=== PATIENT | female | born 1955 | race Caucasian/White ===

== ENCOUNTER 2018-12-12 17:43 | Inpatient (IN) | payer MEDICARE, BC | END 2018-12-17 14:33 | disposition home or self-care (01) | LOC: ER 17:43 → PCU 3S 12-13 07:33 → ED HOLD 21:38 | DX: E11.22 Type 2 diabetes mellitus with diabetic chronic kidney disease (principal); I20.0 Unstable angina; I12.9 Hypertensive chronic kidney disease with stage 1 through stage 4 chronic kidney disease, or unspecified chronic kidney disease; N18.9 Chronic kidney disease, unspecified; N17.9 Acute kidney failure, unspecified; I10 Essential (primary) hypertension ==

== ENCOUNTER 2019-10-30 09:05 | Observation (INO) | payer MEDICARE ==
[2019-10-29 15:56] LABS: BASOPHILS # (AUTO) 0.1 X10'3 (0-0.2); BASOPHILS % (AUTO) 0.9 % (0-1); EOSINOPHILS # (AUTO) 0.1 X10'3 (0-0.9); EOSINOPHILS % (AUTO) 2.1 % (0-6); HEMATOCRIT 33.9 % (35.0-45.0); HEMOGLOBIN 11.5 g/dl (12.0-16.0); LYMPHOCYTES # (AUTO) 1.3 X10'3 (1.1-4.8); LYMPHOCYTES % (AUTO) 20.4 % (21-51); MEAN CORPUSCULAR HEMOGLOBIN 28.5 PG (27.0-31.0); MEAN CORPUSCULAR HGB CONC 34.1 g/dL (33.0-36.5); MEAN CORPUSCULAR VOLUME 83.6 FL (78-98); MEAN PLATELET VOLUME 6.8 FL (7.4-10.4); MONOCYTES # (AUTO) 0.5 X10'3 (0-0.9); MONOCYTES % (AUTO) 7.3 % (2-12); NEUTROPHILS # (AUTO) 4.5 X10'3 (1.8-7.7); NEUTROPHILS % (AUTO) 69.3 % (42-75); PLATELET COUNT 339 X10'3 (140-440); RED BLOOD COUNT 4.05 X10'6 (4.20-5.60); RED CELL DISTRIBUTION WIDTH 13.7 % (11.5-14.5); WHITE BLOOD COUNT 6.5 X10'3 (4.5-11.0)
[2019-10-29 16:05] LABS: ALBUMIN 3.8 G/DL (3.4-5.0); ANION GAP 7 (8-16); BLOOD UREA NITROGEN 16 MG/DL (7-18); BUN/CREATININE RATIO 16.7 (6.6-38.0); CALCIUM 9.3 MG/DL (8.5-10.1); CHLORIDE 102 MMOL/L (99-107); CREATININE 0.96 MG/DL (0.40-0.90); GLUCOSE 128 MG/DL (70-104); POTASSIUM 3.2 MMOL/L (3.5-5.1); SODIUM 141 MMOL/L (135-145); TOTAL CARBON DIOXIDE 32.4 MMOL/L (24-32); eGFR 58 ML/MIN
[2019-10-29 16:08] LABS: PARTIAL THROMBOPLASTIN TIME 24 SECONDS (22-32)
[~2019-10-30] VITALS: Ht 165.1 cm; Wt 64.8 kg
[2019-10-30] VITALS (11 sets, daily range): BP systolic 132–151; BP diastolic 71–89
[~2019-10-30 09:05] MED LIST: AMLO2.5T2 PO; ASPI-1 PO; CLON-528 PO; CLOP75TA35 PO; FAMO20TA8 PO; FLUT16SP2 BOTHNARES; GEMF600T89 PO; HYDR25TA4 PO; LOSA50TA3 PO; METF500T20 PO; METO100T7 PO; NITR0.4T51 SL; PRAV80TA3 PO; SERT50TA PO; SPIR25TA PO; hyDRALAzine tablet PO
[2019-10-30] MEDS ORDERED: LORazepam 0.5 MG tablet PO PRN (09:20)
[2019-10-30] MEDS ORDERED: diphenhydrAMINE 25mg capsule PO PRN (09:20)
[2019-10-30] MEDS: normal saline 1,000 ML IV SCH ×2 (09:20→17:39)
[2019-10-30] MEDS ORDERED: ATOR-2 PO (10:42)
[2019-10-30] MEDS ORDERED: ASPI-1265 PO (10:42)
[2019-10-30] MEDS ORDERED: HYDR-4069 PO ×2 (10:42→10:50)
[2019-10-30] MEDS ORDERED: fentaNYL/PF 50MCG/1 ML 2ML syringe ONE (10:45)
[2019-10-30] MEDS ORDERED: nitroGLYCERIN-Tridil 50MG/D5W 250 ML IV ONE (10:45)
[2019-10-30] MEDS ORDERED: iohexol 350MG/ML 100ml bottle IV ONE ×3 (10:46→12:26)
[2019-10-30] MEDS ORDERED: heparin 1,000unit/ml 10ml vial 10 ML ONE (10:46)
[2019-10-30] MEDS ORDERED: iohexol 350 MG/ML 50ML vial IV ONE (10:46)
[2019-10-30] MEDS ORDERED: midazolam 2 mg/2 ml injection ONE (10:46)
[2019-10-30] MEDS ORDERED: LIDOcaine 1% (10mg/ml)w/preservative injection 20ml MDV ONE (10:46)
[2019-10-30] MEDS ORDERED: NITR0.4T51 SL (10:50)
[2019-10-30] MEDS ORDERED: CLOP75TA15 PO (10:50)
[2019-10-30] MEDS ORDERED: verapamil 2.5 mg/ml inj IV ONE (11:03)
[2019-10-30] MEDS ORDERED: heparin 25,000 UNIT/250ml bag 250 ML IV ONE (12:09)
[2019-10-30] MEDS ORDERED: heparin 1,000 UNITS/NS 500ml 500 ML ONE (12:42)
[2019-10-30] MEDS ORDERED: tirofiban 5mg in NS 100mL 100 ML IV ONE (13:09)
[2019-10-30] MEDS ORDERED: clopidogrel 300mg tablet ONE (13:24)
--- NOTE | 2019-10-30 14:16 | NUR ---
Patient returned from OR via gurney awake and alert. States she is sleepy, oriented x4. vss. Denies cp or sob. Vascband on right wrist without bleeding or hematoma; s/p left and right heart cath with balloon of prior stent. Heparin gtt running at 15.5 units/hr. Agrastat at 0.15mcg/kg/min. Awaiting admission to PCU bed. at bedside. Given water, ice chips and sandwich.
[2019-10-30] MEDS ORDERED: potassium Cl 20 mEq SR tablet PO ONE (14:20)
[2019-10-30] MEDS ORDERED: aspirin 81mg tab.chew PO ONE (14:20)
[2019-10-30] MEDS ORDERED: nitroGLYCERIN 0.4mg SUBLingual tab SL PRN (14:30)
[2019-10-30] MEDS: hydrALAZINE 25 MG tablet PO SCH (16:00)
--- NOTE | 2019-10-30 17:10 | NUR ---
Patient to go to [facility]. I have received report from FAISAL Reed and had the opportunity to ask questions.
--- NOTE | 2019-10-30 17:49 | NUR ---
Patient arrived on unit. A&Ox4, no s/sx of distress. Resting comfortably in bed. Vital signs stable.
--- NOTE | 2019-10-30 18:07 | NUR ---
Problems reprioritized. Patient report given, questions answered & plan of care reviewed with FAISAL Jones.
[2019-10-30] MEDS: tirofiban 5mg in NS 100mL 100 ML IV SCH ×2 (19:17→23:35)
[2019-10-30] MEDS: sertraline 50mg tablet PO SCH (20:40)
[2019-10-30] MEDS ORDERED: metoprolol succinate 25mg (24-HOUR) SR. Tablet PO SCH (21:00)
[2019-10-30] MEDS ORDERED: clonazePAM 0.5mg tablet PO SCH (21:00)
[2019-10-30] MEDS ORDERED: HYDROchlorothiazide 25mg tablet PO SCH (21:00)
[2019-10-30] MEDS ORDERED: amLODIPine 5mg tablet PO SCH (21:00)
[2019-10-30] MEDS: gemfibrozil 600mg tablet PO SCH (22:52)
[2019-10-31] MEDS: normal saline 1,000 ML IV SCH (00:19)
[2019-10-31] MEDS: hydrALAZINE 25 MG tablet PO SCH ×2 (01:14→07:47)
[2019-10-31 02:00] VITALS: BP 142/69
[2019-10-31 03:55] LABS: BASOPHILS % (AUTO) 0.4 % (0-1); EOSINOPHILS # (AUTO) 0.1 X10'3 (0-0.9); EOSINOPHILS % (AUTO) 1.5 % (0-6); HEMOGLOBIN 10.6 g/dl (12.0-16.0); LYMPHOCYTES # (AUTO) 1.3 X10'3 (1.1-4.8); LYMPHOCYTES % (AUTO) 13.4 % (21-51); MEAN CORPUSCULAR HEMOGLOBIN 28.3 PG (27.0-31.0); MEAN CORPUSCULAR HGB CONC 34.2 g/dL (33.0-36.5); MEAN CORPUSCULAR VOLUME 82.9 FL (78-98); MEAN PLATELET VOLUME 6.5 FL (7.4-10.4); MONOCYTES # (AUTO) 0.6 X10'3 (0-0.9); MONOCYTES % (AUTO) 6.9 % (2-12); NEUTROPHILS # (AUTO) 7.3 X10'3 (1.8-7.7); NEUTROPHILS % (AUTO) 77.8 % (42-75); PLATELET COUNT 317 X10'3 (140-440); RED BLOOD COUNT 3.73 X10'6 (4.20-5.60); RED CELL DISTRIBUTION WIDTH 13.8 % (11.5-14.5); WHITE BLOOD COUNT 9.4 X10'3 (4.5-11.0)
[2019-10-31 04:15] LABS: ALBUMIN 3.2 G/DL (3.4-5.0); ANION GAP 8 (8-16); BLOOD UREA NITROGEN 21 MG/DL (7-18); CALCIUM 8.7 MG/DL (8.5-10.1); CHLORIDE 104 MMOL/L (99-107); CREATININE 1.05 MG/DL (0.40-0.90); GLUCOSE 128 MG/DL (70-104); POTASSIUM 3.4 MMOL/L (3.5-5.1); SODIUM 140 MMOL/L (135-145); TOTAL CARBON DIOXIDE 28.2 MMOL/L (24-32); eGFR 52 ML/MIN
[2019-10-31 06:00] VITALS: BP 147/77
--- NOTE | 2019-10-31 06:10 | NUR ---
Patient in room [facility]. I have received report from FAISAL Jones and had the opportunity to ask questions and assume patient care.
--- NOTE | 2019-10-31 06:15 | NUR ---
Problems reprioritized. Patient report given to Li, questions answered & plan of care reviewed with .
[2019-10-31] MEDS: gemfibrozil 600mg tablet PO SCH (07:47)
[2019-10-31] MEDS: sertraline 50mg tablet PO SCH (07:48)
[2019-10-31] MEDS ORDERED: clopidogrel 75mg tablet PO SCH ×2 (08:00)
[2019-10-31] MEDS ORDERED: atorvastatin 20mg tablet PO SCH (08:00)
[2019-10-31] MEDS ORDERED: losartan 50mg tablet PO SCH (08:00)
[2019-10-31] MEDS ORDERED: aspirin 81mg tab.chew PO SCH (08:00)
[2019-10-31] MEDS ORDERED: aspirin 325mg tablet PO SCH (08:30)
[2019-10-31] MEDS ORDERED: potassium Cl 20 mEq SR tablet PO STA (09:00)
[2019-10-31] MEDS ORDERED: ASPI-1 PO (09:34)
[2019-10-31] MEDS ORDERED: FENO145T38 PO (09:34)
[2019-10-31] MEDS ORDERED: PANT40TA4 PO (10:02)
[2019-10-31] MEDS ORDERED: mag hydrox/Alum hydrox/simeth 30ml oral suspension PO ONE (10:05)
[2019-10-31] MEDS ORDERED: pantoprazole 40 MG vial IV ONE (10:05)
[2019-10-31 10:11] LABS: ISTAT HGB ART 10.9 g/dl (12.0-16.0); ISTAT Hct ART 32 %PCV (35-48); ISTAT O2 SATURATION ARTERIAL 94 % (95-98); ISTAT SOURCE ART
[2019-10-31 10:11] LABS: ISTAT Hct MIX 31 %PCV (35-48); ISTAT O2 SATURATION MIX VENOUS 75 % (60-80); ISTAT SOURCE MIX
--- NOTE | 2019-10-31 13:25 | NUR ---
Patient stable for discharge per MD orders. Prescriptions called in to [facility]. All discharge instructions reviewed with patient and all questions answered. panel monitor removed. PIV discontinued, cannula intact. Clean, dry, dressing intact. All personal belongings collected and sent with patient. patient wheeled to private vehicle by hospital personnel at 1325.
--- NOTE | 2019-11-01 10:45 | NUR ---
Case Management DC follow up: spoke to pt & spouse via telephone: pt states she is feeling good, resting. Denies cp, emergent pain, SOB, resp distress, NV, dizziness at this time. verbalizes understanding of medications and why prescribed. All needs met, questions answered at DC. No ase noted at this time. Denies redness, elevated warmth, abnormal swelling/pain, oozing, odor at wrist cath insertion site. Pt verbalized understanding of s/s infection. pt did develop a significant skin rash from hip, breast, back. Called Dr Staples & it was noted that possible dye reaction and he prescribed benedryl which pt states is effective. Pt verbalized understanding of s/s of possible complications and to call emergency serves if warranted. No further questions at this time. Addendum: 11/01/19 at 1054 by Karla Bray RN Pt acknowledges follow up appts necessary w/Dr Staples & PCP [facility], Naty Jones
[2019-11-01] MEDS ORDERED: metFORMIN 500mg tablet PO SCH (20:00)
== END 2019-10-31 13:30 | disposition home or self-care (01) ==
LOC: SSTAY O 09:05 → MED 3N 18:02
PROVIDERS: ADMIT Internal Medicine Cardiovascular Disease; ATTEND Internal Medicine Cardiovascular Disease
DX: I25.10 Atherosclerotic heart disease of native coronary artery without angina pectoris (principal); R94.30 Abnormal result of cardiovascular function study, unspecified; Z95.5 Presence of coronary angioplasty implant and graft; E11.9 Type 2 diabetes mellitus without complications; I10 Essential (primary) hypertension; E78.5 Hyperlipidemia, unspecified; Z79.02 Long term (current) use of antithrombotics/antiplatelets; Z79.82 Long term (current) use of aspirin; Z79.899 Other long term (current) drug therapy
CPT/HCPCS: 36415; 80048; 82803; 82948; 85014; 85025; 85347; 85610; 85730; 92920; 92921; 92978; 93005; 93460; 96365; 96366; 96375; C1725; C1753; C1769; C1894; C9113; G0378; J1644; J2001; J2250; J3010; J3246; J7030; Q0163; Q9967; 99152; 99153; A4620; A5120; A6258; J3490

== ENCOUNTER 2019-11-03 21:40 | Emergency (ER) | payer MEDICARE ==
[~2019-11-03] VITALS: Ht 165.1 cm; Wt 63.0 kg
[~2019-11-03 21:40] MED LIST changes: +ATOR-2 PO; +CLOP75TA15 PO; -CLOP75TA35 PO; -FAMO20TA8 PO; +FENO145T38 PO; -FLUT16SP2 BOTHNARES; -GEMF600T89 PO; +HYDR-4069 PO; +PANT40TA4 PO; -PRAV80TA3 PO; -SPIR25TA PO; -hyDRALAzine tablet PO
[2019-11-03 22:25] LABS: BASOPHILS # (AUTO) 0.1 X10'3 (0-0.2); BASOPHILS % (AUTO) 0.9 % (0-1); EOSINOPHILS # (AUTO) 0.2 X10'3 (0-0.9); EOSINOPHILS % (AUTO) 2.6 % (0-6); HEMATOCRIT 36.1 % (35.0-45.0); HEMOGLOBIN 12.1 g/dl (12.0-16.0); LYMPHOCYTES # (AUTO) 1.5 X10'3 (1.1-4.8); LYMPHOCYTES % (AUTO) 21.5 % (21-51); MEAN CORPUSCULAR HEMOGLOBIN 28.1 PG (27.0-31.0); MEAN CORPUSCULAR HGB CONC 33.5 g/dL (33.0-36.5); MEAN PLATELET VOLUME 6.6 FL (7.4-10.4); MONOCYTES # (AUTO) 0.6 X10'3 (0-0.9); MONOCYTES % (AUTO) 8.5 % (2-12); NEUTROPHILS # (AUTO) 4.8 X10'3 (1.8-7.7); NEUTROPHILS % (AUTO) 66.5 % (42-75); PLATELET COUNT 376 X10'3 (140-440); RED CELL DISTRIBUTION WIDTH 14.2 % (11.5-14.5); WHITE BLOOD COUNT 7.2 X10'3 (4.5-11.0)
[2019-11-03 22:43] LABS: ALANINE AMINOTRANSFERASE 34 U/L (12-78); ALBUMIN 3.7 G/DL (3.4-5.0); ALKALINE PHOSPHATASE 89 IU/L (46-116); ANION GAP 5 (8-16); ASPARTATE AMINO TRANSFERASE 26 U/L (10-37); BILIRUBIN,TOTAL 0.3 MG/DL (0.1-1.0); BLOOD UREA NITROGEN 20 MG/DL (7-18); BUN/CREATININE RATIO 15.6 (6.6-38.0); CALCIUM 9.1 MG/DL (8.5-10.1); CHLORIDE 102 MMOL/L (99-107); CREATININE 1.28 MG/DL (0.40-0.90); GLUCOSE 145 MG/DL (70-104); POTASSIUM 3.1 MMOL/L (3.5-5.1); SODIUM 140 MMOL/L (135-145); TOTAL CARBON DIOXIDE 33.1 MMOL/L (24-32); TOTAL PROTEIN 7.5 G/DL (6.4-8.2); eGFR 42 ML/MIN
[2019-11-03] MEDS ORDERED: diphenhydrAMINE 25mg capsule PO ONE (22:45)
[2019-11-04] MEDS ORDERED: potassium Cl 20 mEq SR tablet PO ONE (01:40)
[2019-11-04] MEDS ORDERED: sertraline 50mg tablet PO ONE (02:35)
[2019-11-04] MEDS ORDERED: hyDRALAzine 10mg tablet PO ONE (02:35)
[2019-11-04] MEDS ORDERED: chlorthalidone 25mg tablet PO ONE (02:35)
[2019-11-04] MEDS ORDERED: amLODIPine 5mg tablet PO ONE (02:35)
[2019-11-04] MEDS ORDERED: clonazePAM 0.5mg tablet PO ONE (02:35)
--- NOTE | 2019-11-04 02:39 | NUR ---
PT REQUESTS TO TAKE HER EVENING MEDS THAT WERE MISSED D/T HER BEING HERE. DR. GAINES UPDATED AND VERBAL RECEIVED FOR ALL OF HER DAMARIS MEDS (AMLODIPINE, CLONAZAPAM, HYDRALAZINE, CHLORTHALIDONE, METFORMIN, SERTRALINIE). PTS REMAINS AT BEDSIDE. PT WITH HEADACHE. DENIES ANY CP. STATES DR. CAMPOS DID THE CATH [address] GAINES HAS PAGE OUT OT CAARDILSUEGY, DR. CHANDLER, FOR CONSULT. 3 HR TROP REMAINS ELEVATED AT 0.18 (0 HR 0.17)
[2019-11-04] MEDS ORDERED: metFORMIN 500mg tablet PO ONE (02:40)
--- NOTE | 2019-11-04 03:07 | NUR ---
PT TO BE DISCHARGED PER DR. GAINES, HE WILL TALK WITH THEM SHORTLY
[2019-11-04 03:21] VITALS: BP 142/76
== END 2019-11-04 03:50 | disposition home or self-care (01) ==
LOC: ER 21:41
DX: R07.89 Other chest pain (principal); R05 Cough; I10 Essential (primary) hypertension; Z98.61 Coronary angioplasty status; Z88.0 Allergy status to penicillin; Z79.82 Long term (current) use of aspirin; Z79.84 Long term (current) use of oral hypoglycemic drugs; Z79.899 Other long term (current) drug therapy
CPT/HCPCS: 36415; 71045; 80053; 84484; 85025; 93005; 99284; Q0163

== ENCOUNTER 2019-11-17 22:10 | Emergency (ER) | payer MEDICARE ==
[~2019-11-17] VITALS: Ht 165.1 cm; Wt 63.6 kg
[2019-11-17] MEDS ORDERED: hydrALAZINE 20mg/ml inj. IV ONE (22:25)
--- NOTE | 2019-11-17 22:42 | NUR ---
pt is 64 yo female c/o headache and "high blood pressure" today, at home BP was 160s to 170s/90s, chest "pressure" off and on, midsternal, nonradiating, no SOB, no n/v, "I just don't feel well...feel tired", pt had stent 10 months ago and angioplasty 2 weeks ago, family at bedside
[2019-11-17 22:47] LABS: BASOPHILS # (AUTO) 0.1 X10'3 (0-0.2); EOSINOPHILS # (AUTO) 0.1 X10'3 (0-0.9); EOSINOPHILS % (AUTO) 2.2 % (0-6); HEMOGLOBIN 11.3 g/dl (12.0-16.0); LYMPHOCYTES # (AUTO) 1.7 X10'3 (1.1-4.8); MEAN CORPUSCULAR HEMOGLOBIN 29.1 PG (27.0-31.0); MEAN CORPUSCULAR HGB CONC 35.4 g/dL (33.0-36.5); MEAN CORPUSCULAR VOLUME 82.3 FL (78-98); MEAN PLATELET VOLUME 6.5 FL (7.4-10.4); MONOCYTES # (AUTO) 0.6 X10'3 (0-0.9); MONOCYTES % (AUTO) 9.9 % (2-12); NEUTROPHILS # (AUTO) 3.8 X10'3 (1.8-7.7); NEUTROPHILS % (AUTO) 59.9 % (42-75); PLATELET COUNT 383 X10'3 (140-440); RED BLOOD COUNT 3.89 X10'6 (4.20-5.60); RED CELL DISTRIBUTION WIDTH 13.9 % (11.5-14.5); WHITE BLOOD COUNT 6.3 X10'3 (4.5-11.0)
[2019-11-17 23:02] LABS: ALANINE AMINOTRANSFERASE 25 U/L (12-78); ALBUMIN 3.9 G/DL (3.4-5.0); ALBUMIN/GLOBULIN RATIO 1.1 (1.1-1.5); ALKALINE PHOSPHATASE 61 IU/L (46-116); ANION GAP 7 (8-16); ASPARTATE AMINO TRANSFERASE 27 U/L (10-37); BILIRUBIN,TOTAL 0.2 MG/DL (0.1-1.0); BLOOD UREA NITROGEN 17 MG/DL (7-18); CALCIUM 9.6 MG/DL (8.5-10.1); CHLORIDE 100 MMOL/L (99-107); CREATININE 1.13 MG/DL (0.40-0.90); GLUCOSE 108 MG/DL (70-104); POTASSIUM 3.3 MMOL/L (3.5-5.1); SODIUM 137 MMOL/L (135-145); TOTAL CARBON DIOXIDE 30.3 MMOL/L (24-32); TOTAL PROTEIN 7.3 G/DL (6.4-8.2); eGFR 48 ML/MIN
[2019-11-17 23:10] LABS: MAGNESIUM 1.9 MG/DL (1.5-2.4)
[2019-11-17] MEDS ORDERED: potassium Cl 20 mEq SR tablet PO STA (23:12)
[2019-11-17] MEDS ORDERED: acetaminophen 325mg tablet PO ONE (23:15)
[2019-11-17 23:36] VITALS: BP 157/83
== END 2019-11-17 23:38 | disposition home or self-care (01) ==
LOC: ER 22:11
DX: I10 Essential (primary) hypertension (principal); E87.6 Hypokalemia; Z98.61 Coronary angioplasty status; Z88.0 Allergy status to penicillin; Z79.82 Long term (current) use of aspirin; Z79.84 Long term (current) use of oral hypoglycemic drugs; Z79.899 Other long term (current) drug therapy
CPT/HCPCS: 36415; 71045; 80053; 83735; 83880; 84484; 85025; 93005; 96374; 99284; J0360

== ENCOUNTER 2020-03-12 17:35 | Emergency (ER) | payer MEDICARE ==
[~2020-03-12] VITALS: Ht 165.1 cm; Wt 63.6 kg
[~2020-03-12 17:35] MED LIST changes: -FENO145T38 PO; +METF-900 PO; -METF500T20 PO
[2020-03-12 18:17] LABS: D-DIMER 0.26 MG/L FEU (0-0.50)
[2020-03-12 18:48] VITALS: BP 130/74
== END 2020-03-12 18:53 | disposition home or self-care (01) ==
LOC: ER 17:37
DX: S80.12XA Contusion of left lower leg, initial encounter (principal); M79.605 Pain in left leg; I25.10 Atherosclerotic heart disease of native coronary artery without angina pectoris; I10 Essential (primary) hypertension; Z98.61 Coronary angioplasty status; Z98.890 Other specified postprocedural states; Z88.0 Allergy status to penicillin; Z79.82 Long term (current) use of aspirin; Z79.899 Other long term (current) drug therapy; X58.XXXA Exposure to other specified factors, initial encounter; Y93.89 Activity, other specified; Y92.89 Other specified places as the place of occurrence of the external cause; Y99.8 Other external cause status
CPT/HCPCS: 36415; 85379; 93971; 99284

== ENCOUNTER 2020-08-13 13:22 | Emergency (ER) | payer MEDICARE ==
[~2020-08-13] VITALS: Ht 165.1 cm; Wt 59.1 kg
[~2020-08-13 13:22] MED LIST changes: +AMIO200T61 PO; -ASPI-1 PO; +ASPI-1265 PO; -ATOR-2 PO; +ATOR80TA PO; +CALC600T15; +CLE2VCR VG; +CLON-527 PO; -CLON-528 PO; -CLOP75TA15 PO; +ERGO400C PO; +EZET10TA6 PO; +FLAX10007 PO; +FLUC150T66 PO; -HYDR25TA4 PO; +MAGN250T11 PO; +MECO10005; -METF-900 PO; +METF500T PO; -METO100T7 PO; +METO50TA7 PO; -NITR0.4T51 SL; -PANT40TA4 PO; +POTA10CA44 PO; +PRAS10TA6 PO; +ZINC10LO5
[2020-08-13 13:58] LABS: BASOPHILS # (AUTO) 0.1 X10'3 (0-0.2); BASOPHILS % (AUTO) 1.1 % (0-1); EOSINOPHILS # (AUTO) 0.1 X10'3 (0-0.9); EOSINOPHILS % (AUTO) 1.5 % (0-6); HEMATOCRIT 29.8 % (35.0-45.0); HEMOGLOBIN 9.6 g/dl (12.0-16.0); LYMPHOCYTES % (AUTO) 13.2 % (21-51); MEAN CORPUSCULAR HEMOGLOBIN 25.2 PG (27.0-31.0); MEAN CORPUSCULAR HGB CONC 32.2 g/dL (33.0-36.5); MEAN CORPUSCULAR VOLUME 78.5 FL (78-98); MEAN PLATELET VOLUME 6.4 FL (7.4-10.4); MONOCYTES # (AUTO) 0.7 X10'3 (0-0.9); MONOCYTES % (AUTO) 9.9 % (2-12); NEUTROPHILS # (AUTO) 5.5 X10'3 (1.8-7.7); NEUTROPHILS % (AUTO) 74.3 % (42-75); PLATELET COUNT 408 X10'3 (140-440); RED CELL DISTRIBUTION WIDTH 15.7 % (11.5-14.5); WHITE BLOOD COUNT 7.4 X10'3 (4.5-11.0)
[2020-08-13 14:09] LABS: GLUCOSE 91 MG/DL (70-104); SODIUM 139 MMOL/L (135-145)
[2020-08-13 14:10] LABS: ALANINE AMINOTRANSFERASE 32 U/L (12-78); ALBUMIN 3.2 G/DL (3.4-5.0); ALBUMIN/GLOBULIN RATIO 0.8 (1.1-1.5); ALKALINE PHOSPHATASE 127 IU/L (46-116); ANION GAP 9 (8-16); ASPARTATE AMINO TRANSFERASE 44 U/L (10-37); BILIRUBIN,TOTAL 0.3 MG/DL (0.1-1.0); BLOOD UREA NITROGEN 17 MG/DL (7-18); CALCIUM 9.1 MG/DL (8.5-10.1); CHLORIDE 101 MMOL/L (99-107); CREATININE 1.21 MG/DL (0.40-0.90); TOTAL CARBON DIOXIDE 28.7 MMOL/L (24-32); eGFR 45 ML/MIN
[2020-08-13] MEDS ORDERED: AMIO100T4 PO (14:10)
[2020-08-13] MEDS ORDERED: CHLO25TA10 PO (14:22)
[2020-08-13] MEDS ORDERED: APIX5TAB3 PO (14:22)
[2020-08-13] MEDS ORDERED: VALS160T30 PO (14:22)
[2020-08-13] MEDS ORDERED: SERT100T10 PO (14:22)
[2020-08-13] MEDS ORDERED: PANT20TA18 PO (14:22)
[2020-08-13] MEDS ORDERED: CHOL100025 PO (14:24)
[2020-08-13] MEDS ORDERED: CYAN500T46 PO (14:24)
[2020-08-13] MEDS ORDERED: MAGN400C PO (14:25)
[2020-08-13 17:09] VITALS: BP 148/68
== END 2020-08-13 17:12 | disposition home or self-care (01) ==
LOC: ER 13:22
DX: G89.18 Other acute postprocedural pain (principal); R10.84 Generalized abdominal pain; I25.10 Atherosclerotic heart disease of native coronary artery without angina pectoris; I10 Essential (primary) hypertension; Z88.0 Allergy status to penicillin; Z79.899 Other long term (current) drug therapy
CPT/HCPCS: 36415; 71045; 71250; 74176; 76700; 80053; 84484; 85025; 93005; 99285

== ENCOUNTER 2021-01-10 21:31 | Emergency (ER) | payer MEDICARE ==
[~2021-01-10] VITALS: Ht 165.1 cm; Wt 60.1 kg
[~2021-01-10 21:31] MED LIST changes: +AMIO100T4 PO; -AMIO200T61 PO; +APIX5TAB3 PO; -CALC600T15; +CHLO25TA10 PO; +CHOL100025 PO; -CLE2VCR VG; -CLON-527 PO; +CYAN500T46 PO; -ERGO400C PO; -FLAX10007 PO; -FLUC150T66 PO; -LOSA50TA3 PO; -MAGN250T11 PO; +MAGN400C PO; -MECO10005; +PANT20TA18 PO; -PRAS10TA6 PO; +SERT-434 PO; -SERT50TA PO; +VALS160T30 PO; -ZINC10LO5
--- NOTE | 2021-01-10 22:18 | NUR ---
PT WITH DRAIN TO RLQ FROM HER RECENT SURGERIES, C/D/I.
[2021-01-10 22:59] VITALS: BP 147/76
== END 2021-01-11 00:15 | disposition home or self-care (01) ==
LOC: ER 21:31
DX: R60.9 Edema, unspecified (principal); M79.671 Pain in right foot; M25.571 Pain in right ankle and joints of right foot; I25.10 Atherosclerotic heart disease of native coronary artery without angina pectoris; I10 Essential (primary) hypertension; Z90.49 Acquired absence of other specified parts of digestive tract; Z98.61 Coronary angioplasty status; Z79.82 Long term (current) use of aspirin; Z79.899 Other long term (current) drug therapy; Z88.0 Allergy status to penicillin; Z86.2 Personal history of diseases of the blood and blood-forming organs and certain disorders involving the immune mechanism
CPT/HCPCS: 73610; 93971; 99284

== ENCOUNTER 2021-09-16 17:54 | Emergency (ER) | payer MEDICARE | END 2021-09-16 20:05 | disposition left against medical advice (07) | LOC: ER 17:55 | DX: M54.2 Cervicalgia (principal); M25.519 Pain in unspecified shoulder; Z53.21 Procedure and treatment not carried out due to patient leaving prior to being seen by health care provider ==